=== PATIENT | female | born 1990 | race Caucasian/White ===

== ENCOUNTER 2020-02-03 18:40 | Emergency (ER) | payer OTHER ==
[~2020-02-03] VITALS: Ht 170.2 cm; Wt 93.0 kg
[2020-02-03 18:44] VITALS: Ht 170.2 cm; Wt 93.0 kg
[2020-02-03 21:02] VITALS: BP 117/70
== END 2020-02-03 21:02 | disposition home or self-care (01) ==
LOC: ED 18:40
DX: S82.852A Displaced trimalleolar fracture of left lower leg, initial encounter for closed fracture (principal); W10.8XXA Fall (on) (from) other stairs and steps, initial encounter; Y93.89 Activity, other specified; Y92.89 Other specified places as the place of occurrence of the external cause; Y99.8 Other external cause status
CPT/HCPCS: Q0092; Q0162

== ENCOUNTER 2020-04-20 15:31 | Emergency (ER) | payer OTHER ==
[~2020-04-20] VITALS: Ht 170.2 cm; Wt 90.3 kg
[2020-04-20 16:03] VITALS: Ht 170.2 cm; Wt 90.3 kg
[2020-04-20 16:53] LABS: BASOPHIL % 0.4 % (0-2); PLATELET COUNT 332 x10^3mcL (130-400); RED CELL DISTRIBUTION WIDTH 13.4 % (11.5-14.5)
[2020-04-20 17:01] LABS: HCG SERUM QUALITATIVE NEGATIVE; HCG SERUM QUANTITATIVE 1 mIU/mL
[2020-04-20 19:37] VITALS: BP 111/67
== END 2020-04-20 19:37 | disposition home or self-care (01) ==
LOC: ED 15:31
PROVIDERS: Emergency Medicine
DX: N83.202 Unspecified ovarian cyst, left side (principal); N83.201 Unspecified ovarian cyst, right side